=== PATIENT | female | born 1970 | race Caucasian/White ===

== ENCOUNTER → 2016-04-25 | Outpatient (CLI) | payer OTHER | LOC: KOH-I 09:22 | DX: M54.16 Radiculopathy, lumbar region (principal); M47.816 Spondylosis without myelopathy or radiculopathy, lumbar region | CPT/HCPCS: 72110 ==

== ENCOUNTER → 2016-05-08 | Outpatient (CLI) | payer OTHER | LOC: EMI 12:47 | DX: M54.2 Cervicalgia (principal); M51.27 Other intervertebral disc displacement, lumbosacral region | CPT/HCPCS: 72148 ==

== ENCOUNTER → 2020-03-28 | Outpatient (CLI) | payer OTHER | LOC: KOH-I 14:41 | DX: M54.5 Low back pain (principal); M51.36 Other intervertebral disc degeneration, lumbar region | CPT/HCPCS: 72100 ==

== ENCOUNTER → 2020-06-23 | Outpatient (CLI) | payer OTHER | LOC: KOH-I 12:53 | DX: M25.511 Pain in right shoulder (principal); M19.011 Primary osteoarthritis, right shoulder | CPT/HCPCS: 73030 ==